=== PATIENT | female | born 1980 | race Caucasian/White ===

== ENCOUNTER → 2019-05-11 10:49 | Outpatient (BNVA) | payer MEDICAID, SELFPAY | PROVIDERS: Family Provider Family Medicine; Visit Provider Nurse Practitioner Psychiatric/Mental Health | DX: F43.12 Post-traumatic stress disorder, chronic (principal); F33.1 Major depressive disorder, recurrent, moderate; M79.7 Fibromyalgia; G89.29 Other chronic pain; F17.200 Nicotine dependence, unspecified, uncomplicated | CPT/HCPCS: 99214 ==

== ENCOUNTER → 2019-06-27 08:34 | Outpatient (BNVA) | payer MEDICAID, SELFPAY | PROVIDERS: Family Provider Family Medicine; Visit Provider Nurse Practitioner Psychiatric/Mental Health | DX: F43.12 Post-traumatic stress disorder, chronic (principal); F33.1 Major depressive disorder, recurrent, moderate; M79.7 Fibromyalgia; G89.29 Other chronic pain | CPT/HCPCS: 99212 ==

== ENCOUNTER → 2019-08-07 07:58 | Outpatient (BNVA) | payer MEDICAID, SELFPAY | PROVIDERS: Family Provider Family Medicine; Visit Provider Nurse Practitioner Psychiatric/Mental Health | DX: F43.12 Post-traumatic stress disorder, chronic (principal); F33.1 Major depressive disorder, recurrent, moderate; M79.7 Fibromyalgia; G89.29 Other chronic pain | CPT/HCPCS: 99212 ==

== ENCOUNTER → 2019-10-31 07:59 | Outpatient (BNVA) | payer MEDICAID, SELFPAY | PROVIDERS: Family Provider Family Medicine; Visit Provider Nurse Practitioner Psychiatric/Mental Health | DX: F43.12 Post-traumatic stress disorder, chronic (principal); F33.1 Major depressive disorder, recurrent, moderate; M79.7 Fibromyalgia; G89.29 Other chronic pain | CPT/HCPCS: G0463 ==

== ENCOUNTER → 2020-01-23 07:41 | Outpatient (BNVA) | payer MEDICAID, SELFPAY | PROVIDERS: PCP Nurse Practitioner; Visit Provider Nurse Practitioner Psychiatric/Mental Health | DX: F43.12 Post-traumatic stress disorder, chronic (principal); F33.1 Major depressive disorder, recurrent, moderate; M79.7 Fibromyalgia; G89.29 Other chronic pain | CPT/HCPCS: 99212 ==

== ENCOUNTER → 2020-02-20 07:49 | Outpatient (BNVA) | payer MEDICAID, SELFPAY | PROVIDERS: PCP Nurse Practitioner; Visit Provider Nurse Practitioner Psychiatric/Mental Health | DX: F33.1 Major depressive disorder, recurrent, moderate (principal); F43.12 Post-traumatic stress disorder, chronic; G89.29 Other chronic pain; M79.7 Fibromyalgia; Z03.89 Encounter for observation for other suspected diseases and conditions ruled out; F41.1 Generalized anxiety disorder | CPT/HCPCS: 99212 ==

== ENCOUNTER → 2020-02-21 09:10 | Outpatient (BNVA) | payer MEDICAID, SELFPAY | PROVIDERS: PCP Nurse Practitioner; Referring Provider Nurse Practitioner Psychiatric/Mental Health; Visit Provider Nurse Practitioner Psychiatric/Mental Health | DX: Z03.89 Encounter for observation for other suspected diseases and conditions ruled out (principal) | CPT/HCPCS: 80053; 80061; 83036 ==

== ENCOUNTER → 2020-04-01 08:21 | Outpatient (BNVA) | payer BC, MEDICAID, SELFPAY | PROVIDERS: PCP Nurse Practitioner; Visit Provider Nurse Practitioner Psychiatric/Mental Health | DX: F33.1 Major depressive disorder, recurrent, moderate (principal); F43.12 Post-traumatic stress disorder, chronic; G89.29 Other chronic pain; M79.7 Fibromyalgia | CPT/HCPCS: 99212 ==

== ENCOUNTER → 2020-04-29 09:09 | Outpatient (BNVA) | payer BC, MEDICAID, SELFPAY | PROVIDERS: PCP Nurse Practitioner; Visit Provider Nurse Practitioner Psychiatric/Mental Health | DX: F33.1 Major depressive disorder, recurrent, moderate (principal); F43.12 Post-traumatic stress disorder, chronic; G89.29 Other chronic pain; M79.7 Fibromyalgia | CPT/HCPCS: 99213 ==

== ENCOUNTER → 2020-07-22 08:34 | Outpatient (BNVA) | payer BC, SELFPAY | PROVIDERS: PCP Nurse Practitioner; Visit Provider Nurse Practitioner Psychiatric/Mental Health | DX: F33.1 Major depressive disorder, recurrent, moderate (principal); F43.12 Post-traumatic stress disorder, chronic; G89.29 Other chronic pain; M79.7 Fibromyalgia | CPT/HCPCS: 99213 ==

== ENCOUNTER 2020-09-27 12:41 | Inpatient (IN) | payer BC, SELFPAY ==
[2020-09-27 13:02] VITALS: BP 160/99; PULSE 75; RESP 14; TEMP 36.7; O2SAT 98; BMI 60.2
--- NOTE | 2020-09-27 13:43 | W.ED.PSYCH ---
HPI - Psych General: Chief Complaint: Psychiatric Symptoms Stated Complaint: WANTS NPU/ NOT TAKING MEDS Time Seen by Provider: 09/27/20 13:15 History of Present Illness: HPI Narrative: 40-year-old female presents emergency room complaining of depression. States she has a history of bipolar she has been on multiple medication the past she stopped all her medication she relates ago she is usually seen at [facility] is not been seen in the room. She does admit to having had some suicidal ideation but has not done anything or plan anything specific she is not previously been hospitalized for suicidal ideation. She states she just feels weak and very lethargic. She reports having behaved erratically where she will be home and sleeping for a day and then leaves her home for 3 to 4 weeks time. MD complaint: suicidal ideation and feels depressed Onset (ago): month(s) Duration: constant History of same: Yes Relieving factors: none Exacerbating factors: none Context: not taking psychiatric medications Associated psychiatric symptoms: depression and suicidal ideation Associated symptoms: Reports suicidal ideation; Deny auditory hallucinations, visual hallucinations, delusions, depression, homicidal ideation or racing thoughts Treatments prior to arrival: none If self harm: admits thoughts of self harm Review of Systems Const: Denies: fever(s), chills, body aches, change in appetite, fatigue or malaise ENMT: Denies: throat pain, ear or mastoid pain, nasal discharge or nasal congestion Card: Denies: chest pain, edema, dyspnea on exertion or orthopnea Resp: Denies: dyspnea, productive cough or non-productive cough GI: Denies: abdominal pain, nausea, vomiting, hematemesis, coffee ground emesis, diarrhea, constipation, bloating, hematochezia or melena : Denies: flank pain, difficulty voiding, dysuria, urinary frequency or urinary urgency Skin/Breast: Denies: rash or pruritus Psych: Reports: suicidal ideation; Denies: depression, visual hallucinations, auditory hallucinations or homicidal ideation [facility] ED PFSH: Medical History Chronic pain Chronic post-traumatic stress disorder (PTSD) Fibromyalgia Major depressive disorder, recurrent, moderate Tobacco use disorder Social History Smoking and tobacco status: current every day smoker cigarettes Packs smoked per day: 0.25 Years cigarettes smoked: 23 Quit status (tobacco): not considering quitting Second hand smoke exposure: Yes Current gender identity: Female Female Reproductive History: Date of last menstrual period: 09/15/20 Physical Exam Const: COMMON NORMALS: no acute distress GENERAL APPEARANCE: cooperative and comfortable ORIENTATION/CONSCIOUSNESS: Yes awake, Yes oriented to person, Yes oriented to place and Yes oriented to time HENMT: COMMON NORMALS: normocephalic, atraumatic, hearing grossly normal bilaterally, external ears normal, EAC's normal, TM's normal bilaterally, Normal nasal mucous membranes and turbinates present, moist oral mucous membranes and oropharynx normal HEAD & SCALP: normocephalic and atraumatic NOSE: Normal nasal mucous membranes and turbinates present EXTERNAL EAR: Yes external ears normal EXTERNAL AUDITORY CANAL: EAC's normal TYMPANIC MEMBRANE: TM's normal bilaterally Eye: COMMON NORMALS: Equal, round and reactive pupils present, EOMs intact bilaterally, conjunctivae normal and no scleral icterus CONJUNCTIVA: Yes conjunctivae normal PUPIL: Yes Equal, round and reactive pupils present Neck/C-Spine: COMMON NORMALS: full ROM, no lymphadenopathy, supple and no JVD Lymph: LYMPHATIC: no lymphadenopathy noted and no lymphedema noted Resp: COMMON NORMALS: normal respiratory effort, No retractions, No use of accessory muscles and clear to auscultation bilaterally AUSCULTATION: clear to auscultation bilaterally Cardio: COMMON NORMALS: no JVD, regular rate, regular rhythm and No murmurs present (Cardio) RATE: regular rate RHYTHM: regular rhythm GI: COMMON NORMALS: Soft to palpation and No hepatosplenomegaly present AUSCULTATION: Yes normoactive bowel sounds PALPATION: Yes Soft to palpation, No Tenderness to palpation present (GI), No Guarding due to palpation present (GI) and Yes No hepatosplenomegaly present Extremity: COMMON NORMALS: normal to inspection, capillary refill normal, no clubbing, cyanosis or edema, no calf tenderness and no pedal edema Neuro: SENSORIUM/ORIENTATION: Yes oriented to person, Yes oriented to place and Yes oriented to time Psych: THOUGHT CONTENT: No delusions Skin: COMMON NORMALS: no rashes or lesions noted GENERAL SKIN EXAM: no rashes or lesions noted Course Vital Signs: Vital signs: Vital Signs Temperature 98.1 F 09/27/20 13:02 Pulse Rate 75 09/27/20 13:02 Respiratory Rate 14 09/27/20 13:02 Blood Pressure 160/99 09/27/20 13:02 Pulse Oximetry 98 09/27/20 13:02 MDM - Psych MDM Narrative: Medical decision making narrative: Suicidal ideation, will admit. Dr. Burciaga requests a COVID antigen. Lab Data: Labs: Lab Results 09/27/20 09/27/20 09/27/20 Range/Units 13:36 13:36 13:36 WBC (4.0-10.0) 10^3/ uL RBC (4.1-5.3) 10^6/u L Hgb (11.5-15.3) g/dL Hct (37.0-47.0) % MCV (81-99) fL MCH (28.0-34.0) pg MCHC (30.0-36.0) g/dL RDW (12.1-15.1) % Plt Count (130-400) 10^3/c mm MPV (7.4-10.4) fL Neut % (Auto) % Lymph % (Auto) % [place] % (Auto) % Eos % (Auto) % Baso % (Auto) % Neut # (Auto) (1.8-7.7) 10^3/u L Lymph # (Auto) (0.8-4.8) 10^3/u L [place] # (Auto) (0.2-0.9) 10^3/u L Eos # (Auto) (0.0-0.8) 10^3/u L Baso # (Auto) (0.0-0.1) 10^3/u L Nucleated RBC % (a uto) % Nucleated RBCs # /100WBC Sodium (136-145) mmol/L Potassium (3.5-5.1) mmol/L Chloride (98-107) mmol/L Carbon Dioxide (22-29) mmol/L Anion Gap (5-19) BUN (6-20) mg/dL Creatinine (0.5-0.9) mg/dL GFR Calculation (90-130) mL/min Glucose (65-115) mg/dL Calculated Osmolal ity (285-295) mOsm/k g Calcium (8.5-10.5) mg/dL Total Bilirubin (0.15-1.2) mg/dL AST (0-32) U/L ALT (0-33) U/L Alkaline Phosphata se (35-105) IU/L Total Protein (6.6-8.7) g/dL Albumin (3.5-5.2) g/dL Globulin (1.3-4.6) g/dL HCG, Qual Negative (Negative) Urine Color Yellow (Yellow) Urine Appearance Clear (CLEAR) Urine pH 7 (5-7) Ur Specific Gravit y 1.005 (1.005-1.030) Urine Protein Neg (Negative) Urine Glucose (UA) Norm (Normal) Urine Ketones Negative (Negative) Urine Blood Neg (Negative) Urine Nitrate Negative (Negative) Urine Bilirubin Neg (Negative) Urine Urobilinogen Norm (Negative) mg/dL Ur Leukocyte Aliza ase 1+ H (Negative) Urine RBC None (0-2) /hpf Urine WBC 25-40 H (0-5) /hpf Ur Squamous Epith Cells 10-15 H (0-5) /hpf Amorphous Sediment Not Reportable Urine Bacteria Trace (NONE) /hpf Salicylates (3-10) mg/dL Urine Opiates Scre en Negative (Negative) ng/mL Acetaminophen (10-30) ug/mL Ur Barbiturates Sc reen Negative (Negative) ng/mL Ur Phencyclidine S crn Negative (Negative) ng/mL Ur Amphetamines Sc reen Positive H (Negative) ng/mL U Benzodiazepines Scrn Negative (Negative) ng/mL Urine Cocaine Scre en Negative (Negative) ng/mL U Marijuana (THC) Screen Positive H (Negative) ng/mL Ethyl Alcohol (0-10) mg/dL 09/27/20 09/27/20 Range/Units 13:55 13:55 WBC 7.0 (4.0-10.0) 10^3/ uL RBC 5.55 H (4.1-5.3) 10^6/u L Hgb 16.4 H (11.5-15.3) g/dL Hct 48.7 H (37.0-47.0) % MCV 87.7 (81-99) fL MCH 29.5 (28.0-34.0) pg MCHC 33.7 (30.0-36.0) g/dL RDW 12.8 (12.1-15.1) % Plt Count 273 (130-400) 10^3/c mm MPV 10.0 (7.4-10.4) fL Neut % (Auto) 67.3 % Lymph % (Auto) 21.9 % [place] % (Auto) 8.5 % Eos % (Auto) 1.6 % Baso % (Auto) 0.6 % Neut # (Auto) 4.73 (1.8-7.7) 10^3/u L Lymph # (Auto) 1.5 (0.8-4.8) 10^3/u L [place] # (Auto) 0.6 (0.2-0.9) 10^3/u L Eos # (Auto) 0.1 (0.0-0.8) 10^3/u L Baso # (Auto) 0.0 (0.0-0.1) 10^3/u L Nucleated RBC % (a uto) 0 % Nucleated RBCs # 0.0 /100WBC Sodium 139 (136-145) mmol/L Potassium 4.1 (3.5-5.1) mmol/L Chloride 102 (98-107) mmol/L Carbon Dioxide 28 (22-29) mmol/L Anion Gap 13.1 (5-19) BUN 6 (6-20) mg/dL Creatinine 0.5 (0.5-0.9) mg/dL GFR Calculation 136.0 H (90-130) mL/min Glucose 98 (65-115) mg/dL Calculated Osmolal ity 286 (285-295) mOsm/k g Calcium 8.8 (8.5-10.5) mg/dL Total Bilirubin 0.4 (0.15-1.2) mg/dL AST 14 (0-32) U/L ALT 17 (0-33) U/L Alkaline Phosphata se 75 (35-105) IU/L Total Protein 6.6 (6.6-8.7) g/dL Albumin 3.7 (3.5-5.2) g/dL Globulin 2.9 (1.3-4.6) g/dL HCG, Qual (Negative) Urine Color (Yellow) Urine Appearance (CLEAR) Urine pH (5-7) Ur Specific Gravit y (1.005-1.030) Urine Protein (Negative) Urine Glucose (UA) (Normal) Urine Ketones (Negative) Urine Blood (Negative) Urine Nitrate (Negative) Urine Bilirubin (Negative) Urine Urobilinogen (Negative) mg/dL Ur Leukocyte Aliza ase (Negative) Urine RBC (0-2) /hpf Urine WBC (0-5) /hpf Ur Squamous Epith Cells (0-5) /hpf Amorphous Sediment Urine Bacteria (NONE) /hpf Salicylates < 0.3 L (3-10) mg/dL Urine Opiates Scre en (Negative) ng/mL Acetaminophen < 5.0 L (10-30) ug/mL Ur Barbiturates Sc reen (Negative) ng/mL Ur Phencyclidine S crn (Negative) ng/mL Ur Amphetamines Sc reen (Negative) ng/mL U Benzodiazepines Scrn (Negative) ng/mL Urine Cocaine Scre en (Negative) ng/mL U Marijuana (THC) Screen (Negative) ng/mL Ethyl Alcohol < 10 (0-10) mg/dL Discharge Plan Discharge Patient Disposition: Admitted As Inpatient Clinical Impression: Suicidal ideation Condition: Stable Prescriptions: No Action duloxetine 60 mg capsule,delayed release(DR/EC) 60 mg PO QAM Qty: 30 RF: 2 hydroxyzine HCl 25 mg tablet 25 mg PO BID PRN (Reason: anxiety) Qty: 60 RF: 2 Referrals: Brynn Tracy NP [Primary Care Provider] - Patient Instructions: Opioid Safety Coding Level of Care Code ED Medical Information Specialist for [employer]uh[employer] Fwd Exam Comprehensive
[2020-09-27 13:49] LABS: Bilirubin Urine Neg (Negative); Blood Urine Neg (Negative); Glucose Urine UA Norm (Normal); HCG Qualitative Urine. Negative (Negative); Ketones Urine Negative (Negative); Nitrate Urine Negative (Negative); Protein Urine Neg (Negative); Specific Gravity, Urine 1.005 (1.005-1.030); Urine Appearance Clear (CLEAR); Urine Color Yellow (Yellow); Urobilinogen Urine Norm (Negative); pH Urine 7 (5-7)
[2020-09-27 13:50] LABS: Add Urine Microscopic? YES; Leukocyte Esterase Urine 1+ (Negative)
[2020-09-27 13:57] LABS: Amphetamines Screen Urine Positive (Negative); Barbiturates Screen Urine Negative (Negative); Benzodiazepines Screen Urine Negative (Negative); Cocaine Screen Urine Negative (Negative); Opiate Screen Urine Negative (Negative); PCP Screen Urine Negative (Negative); THC Screen Urine Positive (Negative)
[2020-09-27 13:59] LABS: Add Urine Culture? No; Bacteria Urine TRACE /hpf; WBC Urine 25-40 /hpf (0-5)
[2020-09-27 14:03] LABS: Basophils % 0.6 %; Eosinophils # 0.1 10^3/uL (0.0-0.8); Eosinophils % 1.6 %; Hematocrit 48.7 % (37.0-47.0); Hemoglobin 16.4 g/dL (11.5-15.3); Lymphocytes # 1.5 10^3/uL (0.8-4.8); Lymphocytes % 21.9 %; Mean Corpuscular HGB Conc 33.7 g/dL (30.0-36.0); Mean Corpuscular Hemoglobin 29.5 pg (28.0-34.0); Mean Corpuscular Volume 87.7 fL (81-99); Monocytes # 0.6 10^3/uL (0.2-0.9); Monocytes % 8.5 %; Neutrophils # 4.73 10^3/uL (1.8-7.7); Neutrophils % 67.3 %; Nucleated Red Blood Cells % 0 %; Platelet Count 273 10^3/cmm (130-400); Red Blood Count 5.55 10^6/uL (4.1-5.3); Red Cell Distribution Width 12.8 % (12.1-15.1)
[2020-09-27 14:24] LABS: Alanine Aminotransferase 17 U/L (0-33); Albumin Level 3.7 g/dL (3.5-5.2); Alkaline Phosphatase 75 IU/L (35-105); Anion Gap 13.1 (5-19); Aspartate Amino Transferase 14 U/L (0-32); Blood Urea Nitrogen 6 mg/dL (6-20); Calcium 8.8 mg/dL (8.5-10.5); Carbon Dioxide 28 mmol/L (22-29); Chloride 102 mmol/L (98-107); Creatinine Clr Calc Pharmacy 249.6759; Globulin 2.9 g/dL (1.3-4.6); Glucose 98 mg/dL (65-115); Osmolality Calculated 286 mOsm/kg (285-295); Potassium 4.1 mmol/L (3.5-5.1); Sodium 139 mmol/L (136-145); Total Bilirubin 0.4 mg/dL (0.15-1.2); Total Protein 6.6 g/dL (6.6-8.7)
[2020-09-27 14:29] LABS: Acetaminophen < 5.0 ug/mL (10-30); Alcohol Level < 10 mg/dL (0-10); Salicylate < 0.3 mg/dL (3-10)
[2020-09-27 16:49] LABS: SARS Covid-2 Antigen Negative (Negative)
[2020-09-27 17:00] VITALS: BP 148/85; PULSE 81; RESP 15; O2SAT 95
[2020-09-27 17:32] VITALS: BP 173/105; PULSE 79; RESP 20; TEMP 36.8; O2SAT 99
[2020-09-27 20:35] VITALS: BP 167/107; PULSE 86; RESP 20; TEMP 37.1; O2SAT 93
[2020-09-28 06:00] VITALS: BP 162/103; PULSE 68; RESP 18; TEMP 37.2; O2SAT 95
--- NOTE | 2020-09-28 10:54 | PM.NHP ---
Providers/Chief Complaint Admitting Physician: Domingo Burciaga DO Primary Care Provider: Brynn Tracy NP Chief Complaint: WANTS NPU/ NOT TAKING MEDS HPI NPU History of Present Illness Izzy Cordon is a 40 year old female with history of chronic PTSD, depression, fibromyalgia, chronic pain presented to the emergency department with suicidal ideation, increasing irritability and frustration, off of her medication for the past couple months with positive urine drug screen for methamphetamine and cannabis. Patient was requesting admission to the inpatient psychiatry unit. Patient continues to report depressive symptoms, no medication never works for me so I stopped taking it. Patient reports decreased energy and interest although she has difficulty identifying any temporal relationship of her use of marijuana or methamphetamine, which she denies ever using, and her neurovegetative signs, symptoms. Patient states that she only uses marijuana a couple times a month and per above, denies any methamphetamine use. Patient does describe ongoing episodes of irritability and low frustration tolerance and anger in which she will erratically leave the house for a week or 2 at a time. Patient once again does not identify any relationship with past substance use. Patient states that she feels like she has bipolar although this is never been outlined in any of her outpatient psychiatry notes and she has difficulty identifying any past periods of time consistent with hypomanic or manic episodes. Once again she is not able to identify pattern of substance use which could further complicate her clinical picture diagnostically. Patient reports intermittent anxiety symptoms with ongoing life stress, family stress, financial stress. She denies any psychotic symptoms. Psychiatric review of systems is otherwise negative. Patient reports ongoing life stressors to include living with her mother with her children and financial stressors. Review of Systems General: Reports: 10 or more systems reviewed and unremarkable except in HPI and below Meds NPU Home Medications Medication Instructions Recorded Confirmed Last Taken Type duloxetine 60 mg capsule,delayed 60 mg PO QAM #30 cap 07/22/20 09/27/20 Unknown Rx release hydroxyzine HCl 25 mg tablet 25 mg PO BID PRN #60 tab 07/22/20 09/27/20 Unknown Rx Allergies Allergy/AdvReac Type Severity Reaction Status Date / Time No Known Allergies Allergy Verified 09/27/20 13:02 PFSH NPU PFSH: Medical History Chronic pain Chronic post-traumatic stress disorder (PTSD) Fibromyalgia Major depressive disorder, recurrent, moderate Tobacco use disorder Social History Smoking and tobacco status: current every day smoker cigarettes Packs smoked per day: 0.25 Years cigarettes smoked: 23 Quit status (tobacco): not considering quitting Second hand smoke exposure: Yes Current gender identity: Female Other Psychiatric History: Other Psychiatric History: Patient has been seen in [facility] [place] although patient states that she has been told that she is on walk-in status because of multiple missed appointments Denies any history of past inpatient psychiatric hospitalizations Reports remote history of suicide attempt as a teenager but denies any hospitalization, denies any history of self-harm behavior Mental Status Exam MSE Comments: Sitting up on her bed, morbidly obese, somewhat irritable but cooperative with interview, interactive, wearing T-shirt and shorts, tired appearing Psychomotor activity is neither increased nor decreased, no agitation Speech is normal rate and volume although patient appears to have to catch her breath sometimes to finish sentences, not pressured I feel like she had it, full range, not labile Alert and oriented to person, place, time, situation Memory and concentration appear to be fair to intact per interview Intellectual functioning appears to be average at best based on vocabulary, interview Thought process, linear, no flight of ideas, no looseness of associations Thought content, no delusions, no hallucinations, no suicidal or homicidal ideation Insight and judgment appear to be fair to intact Vitals/I&O/Wt Last Vital Signs Temp 99.0 F 09/28/20 06:00 Pulse 68 09/28/20 06:00 Resp 18 09/28/20 06:00 BP 162/103 09/28/20 06:00 Pulse Ox 95 09/28/20 06:00 Weight last 48 hrs Weight 174.633 kg Data NPU : 09/27/20 13:55 09/27/20 13:55 A&P Assessment and plan (1) Suicidal ideation: Status: Acute (2) Depressive disorder: Status: Acute (3) Chronic post-traumatic stress disorder (PTSD): Status: Chronic Additional A&P Information Patient has been followed by [facility] [place] and trialed on multiple medications, max dosage of Lexapro with augmentation strategies including Wellbutrin, fluoxetine with Abilify to which the patient has stated that none of these combinations have helped at all with her symptoms. Appears to have strong underlying personality traits and has a past history of trauma as well as multiple ongoing life stressors with reported substance use although patient is unclear about her pattern of use but currently has a urine drug screen positive for methamphetamine and cannabis which likely contribute to her ongoing decreased motivation and interest as well as her irritability and erratic behaviors that have been reported on previous outpatient notes. VOLUNTARY ADMIT to inpatient psychiatry START duloxetine 20 mg by mouth twice daily targeting mood START gabapentin 100 mg by mouth 3 times daily targeting chronic pain, mood, anxiety Encouraged patient to participate in unit activities to group sessions, unit milieu Coordinate with certified social workers in health care for post discharge mental health care and substance counseling Involuntary Hold Information 96 Hour Hold: 96 Hour Involuntary Admission: No Attestations NPU Medical Necessity Statement*: Psychiatric hospitalization is indicated for medication stabilization, coordination for safe discharge Anticipate hospital stay to exceed 2 midnights Time Spent in Patient Care: Greater than 35 minutes (>than 50% of time spent in counselling and/or direct pt care on unit). Coding Level of Care Code Acute Underwear Hemmer for García Duncan Diagnoses Suicidal ideation R45.851 Depressive disorder F32.9 Chronic post-traumatic stress disorder (PTSD) F43.12
[2020-09-28] MEDS: duloxetine 20 mg Capsule PO ×2 (11:37→17:12)
[2020-09-28] MEDS: acetaminophen 325 mg Tablet 650 MG PO (11:37)
[2020-09-28] MEDS: gabapentin 100 mg Capsule PO ×3 (11:37→20:21)
[2020-09-28 14:00] VITALS: BP 174/108; PULSE 76; RESP 18; TEMP 36.1; O2SAT 95
--- NOTE | 2020-09-28 15:01 | PC.NURSE ---
HIGH BLOOD PRESSURE CHARGE NURSE NOTIFIED. WILL CONTINUE TO MONITOR AND RECHECK IN ONE HOUR.
[2020-09-28 20:24] VITALS: BP 159/83; PULSE 71; RESP 20; TEMP 37.2; O2SAT 92
[2020-09-29 06:00] VITALS: BP 159/102; PULSE 64; RESP 18; TEMP 37.5; O2SAT 94; BMI 60.2
[2020-09-29] MEDS: gabapentin 100 mg Capsule PO ×3 (08:19→20:15)
[2020-09-29] MEDS: duloxetine 20 mg Capsule PO (08:19)
--- NOTE | 2020-09-29 09:45 | P.PN_ITS ---
Subjective NPU Subjective: Interval history: Patient reports some improvement in her depressive and anxiety symptoms stating that she was able to sleep last night and feels rested Continues to report intermittent mood symptoms, continues to have some irritability Denies any interval suicidal ideation or thoughts about self-harm States that she has been compliant with her medication, denies any medication side effects Per staff, elevated blood pressure readings, no interval behavioral disturbances Mental Status Exam MSE Comments: Lying in bed, appropriately dressed in hospital scrubs, calm, cooperative, good eye contact Psychomotor activity is neither increased nor decreased, no agitation Speech is normal rate and volume, spontaneous, fair articulation, not pressured I feel little better, full range, not labile Alert and oriented to person, place, time, situation Memory and concentration appear to be fair to intact per interview Thought process, linear, no flight of ideas, no looseness of associations Thought content, no delusions, no hallucinations, no suicidal or homicidal ideation Insight and judgment appear to be fair to intact Vitals/I&O/Wt Last Vital Signs Temp 99.5 F 09/29/20 06:00 Pulse 64 09/29/20 06:00 Resp 18 09/29/20 06:00 BP 159/102 09/29/20 06:00 Pulse Ox 94 09/29/20 06:00 Weight last 48 hrs Weight 174.633 kg Weight 174.633 kg Data NPU : 09/27/20 13:55 09/27/20 13:55 A&P Assessment and plan (1) Suicidal ideation: Status: Acute (2) Depressive disorder: Status: Acute (3) Chronic post-traumatic stress disorder (PTSD): Status: Chronic Additional A&P Information Ongoing depressive and anxiety symptoms in the context of multiple life stressors START lisinopril 10 mg daily targeting elevated blood pressures INCREASE to duloxetine 30 mg twice daily targeting depressive and anxiety symptoms Involuntary Hold Information 96 Hour Hold: 96 Hour Involuntary Admission: No Attestations NPU Medical Necessity Statement*: Continues to require psychiatric hospitalization for medication stabilization Coding Level of Care Code Acute Passenger Service Agent for García Duncan Diagnoses Suicidal ideation R45.851 Depressive disorder F32.9 Chronic post-traumatic stress disorder (PTSD) F43.12
[2020-09-29] MEDS: lisinopril 10 mg Tablet PO (10:11)
[2020-09-29 14:00] VITALS: BP 153/98; PULSE 73; RESP 20; TEMP 36.2; O2SAT 95
[2020-09-29] MEDS: duloxetine 30 mg Capsule PO (17:20)
[2020-09-29 21:57] VITALS: BP 188/99; PULSE 71; RESP 18; TEMP 36.4; O2SAT 98
[2020-09-30 05:44] VITALS: BP 145/86; PULSE 70; RESP 20; TEMP 36.6; O2SAT 92
--- NOTE | 2020-09-30 08:36 | PC.RESP ---
SMOKING CESSATION INFORMATION SENT TO PATIENT.
--- NOTE | 2020-09-30 08:54 | PM.NDC ---
Diagnoses at Discharge Discharge Diagnosis (1) Suicidal ideation: Status: Acute (2) Depressive disorder: Status: Acute (3) Chronic post-traumatic stress disorder (PTSD): Status: Chronic Reason for Visit Reason for Visit: WANTS NPU/ NOT TAKING MEDS Hospital Course Hospital Course 40 year old female with history of chronic PTSD, depression, fibromyalgia, chronic pain presented to the emergency department with suicidal ideation, increasing irritability and frustration, off of her medication for the past couple months with positive urine drug screen for methamphetamine and cannabis. Patient was requesting admission to the inpatient psychiatry unit. She continued to report depressive symptoms at the time of initial evaluation but was denying any suicidal ideation. Patient was started on Cymbalta 30 mg twice daily with good effect reporting significant improvement in her depressive and anxiety symptoms. Patient was complaining of some cognitive clouding at the time of admission which had cleared during the course of her hospital stay and unclear if this was the result of lingering effects of recent substance use. Patient tolerated medication changes well with no reports of any medication side effects. Patient participated in unit milieu with no reports of any behavioral disturbances. Patient was not suicidal at the time of discharge and did not endorse any psychiatric symptoms and did not appear to pose an imminent threat of harm to self or others. Low to moderate risk of harm to self given no current suicidal ideation and no current endorsement of any psychiatric symptoms although her risk may continue to be elevated if she continues to use substances or alcohol leading to disinhibition with unexpected, impulsive behavior. Risk mitigation included psychiatric hospitalization, medication stabilization, recommendation to abstain from use of substances and alcohol as well as the need for compliance with medication complication management and post discharge substance counseling/treatment. Patient was able to communicate her understanding of the need to abstain from use of substances and alcohol as well as the need for compliance with medication, medication management and substance counseling/treatment in order to further mitigate her risk of harm to self and others. Involuntary Hold Information 96 Hour Hold: 96 Hour Involuntary Admission: No Mental Status Exam MSE Comments: Sitting up on her bed, calm, cooperative, appropriately dressed, good eye contact Psychomotor activity is neither increased nor decreased, no agitation Speech is normal rate and volume, spontaneous, fair articulation, not pressured I feel good, full range, not labile Alert and oriented to person, place, time, situation Memory and concentration appear to be fair to intact per interview Thought process, linear, no flight of ideas, no looseness of associations Thought content, no delusions, no hallucinations, no suicidal or homicidal ideation Insight and judgment appear to be fair to intact Discharge Data Vitals: Last Vital Signs Temp 97.9 F 09/30/20 05:44 Pulse 70 09/30/20 05:44 Resp 20 H 09/30/20 05:44 BP 145/86 09/30/20 05:44 Pulse Ox 92 09/30/20 05:44 Discharge Plan Discharge Patient Disposition: Home Condition: Stable Prescriptions: New duloxetine 30 mg Capsule,Delayed Release(Dr/Ec) 30 mg PO BID Qty: 60 RF: 0 lisinopril 10 mg Tablet 10 mg PO DAILY Qty: 30 RF: 0 gabapentin 100 mg Capsule 100 mg PO TID Qty: 90 RF: 0 Discontinued duloxetine 60 mg capsule,delayed release(DR/EC) 60 mg PO QAM Qty: 30 RF: 2 hydroxyzine HCl 25 mg tablet 25 mg PO BID PRN (Reason: anxiety) Qty: 60 RF: 2 Referrals: Brynn Tracy HOME APPLIANCE WASHING MACHINE MECHANIC [Primary Care Provider] - Patient Instructions: Opioid Safety Discharge Attestations NPU Time Spent in Discharge Care*: greater than 30 min Status at Discharge: Cognitive status at discharge: cognitively intact, Behavioral status at discharge: cooperative, Functional status at discharge: independent ambulation Overall status at discharge: patient is back to baseline Coding Level of Care Code Acute Chg FW LISA note Diagnoses Suicidal ideation R45.851 Depressive disorder F32.9 Chronic post-traumatic stress disorder (PTSD) F43.12
[2020-09-30] MEDS: gabapentin 100 mg Capsule PO (09:05)
[2020-09-30] MEDS: duloxetine 30 mg Capsule PO (09:05)
[2020-09-30] MEDS: lisinopril 10 mg Tablet PO (09:05)
[2020-09-30 13:30] VITALS: BP 145/86; PULSE 70; RESP 20; TEMP 36.6; O2SAT 92
== END 2020-09-30 14:20 | disposition home or self-care (01) | DRG 885 ==
LOC: ER 15:16 → NP 15:32
PROVIDERS: Physician Assistant; Admitting Provider Psychiatry & Neurology Psychiatry; Emergency Provider Family Medicine; PCP Nurse Practitioner; Visit Provider Psychiatry & Neurology Psychiatry
DX: F33.1 Major depressive disorder, recurrent, moderate (principal); R45.851 Suicidal ideations; F43.12 Post-traumatic stress disorder, chronic; M79.7 Fibromyalgia; F15.90 Other stimulant use, unspecified, uncomplicated; F12.90 Cannabis use, unspecified, uncomplicated; G89.29 Other chronic pain; F17.210 Nicotine dependence, cigarettes, uncomplicated; Z91.14 Patient's other noncompliance with medication regimen
CPT/HCPCS: 80053; 80306; 80307; 81001; 81025; 85025; 87426; 99285